=== PATIENT | male | born 1985 | race Two or more races ===

== ENCOUNTER 2020-12-19 01:41 | Inpatient (IN) | payer SELFPAY ==
[~2020-12-19] VITALS: Ht 170.2 cm; Wt 86.2 kg
[2020-12-19 02:38] LABS: Basophils # (auto) 0 10 ^3/uL (0-0.2); Basophils % (auto) 0.3 % (0.0-2.0); Eosinophils # (auto) 0.1 10 ^3/uL (0-0.8); Eosinophils % (auto) 1.4 % (0.0-7.0); Hematocrit 48.2 % (41.0-53.0); Hemoglobin 17.5 g/dL (13.5-17.5); Lymphocytes # (auto) 3.4 10 ^3/uL (0.4-5.4); Lymphocytes % (auto) 45.4 % (10.0-50.0); Mean Corpuscular Hemoglobin 31.8 pg (28.0-32.0); Mean Corpuscular Hgb Conc. 36.4 g/dL (32.0-36.0); Mean Corpuscular Volume 87.3 fL (80.0-100.0); Monocytes # (auto) 0.6 10 ^3/uL (0-1.3); Neutrophils # (auto) 3.3 10 ^3/uL (1.6-8.6); Neutrophils % (auto) 44.9 % (37.0-80.0); Nucleated Red Blood Cells % 0.1 %; Platelet Count (auto) 297 10^3/uL (140-450); Red Blood Cells 5.52 10^6/uL (4.5-5.90); Red Cell Distribution Width 13.5 % (11.8-14.3); White Blood Cell 7.4 10^3/uL (4.4-10.8)
[2020-12-19 02:50] LABS: INR 1.03 (0.9-1.15); Partial Thromboplastin Time 27.3 sec (23.0-31.2)
[2020-12-19 02:53] LABS: Albumin 4.3 g/dL (3.4-5.0); BUN/Creatinine Ratio 12.2; Potassium 3.1 mmol/L (3.5-5.1)
[2020-12-19 02:58] LABS: Bilirubin, Total 0.6 mg/dL (0.2-1.0); Total Protein 7.4 g/dL (6.4-8.2)
[2020-12-19 03:30] LABS: Urine Bacteria NONE SEEN /hpf (None Seen); Urine Blood Negative /uL (Negative); Urine Specific Gravity 1.016 (1.001-1.035); Urine WBC <1 /hpf (0 - 3)
[2020-12-19] MEDS ORDERED: POTASSIUM EFFERVESENT TAB 25 MEQ PO ONE (03:30)
[2020-12-19] MEDS ORDERED: ENOXAPARIN SOD 100 MG/1 ML SYRINGE SC ONE (06:45)
[2020-12-19] MEDS ORDERED: ASPirin 325 MG TAB PO ONE (06:45)
[2020-12-19] MEDS ORDERED: ACETAMINOPHEN 325 MG TAB PO PRN (07:30)
[2020-12-19] MEDS ORDERED: ONDANSETRON HCL 4 MG/2 ML VIAL IV PRN (07:30)
[2020-12-19] MEDS ORDERED: MORPHINE SULFATE 4 MG/ML SYR/VIAL IV PRN (07:30)
[2020-12-19] MEDS ORDERED: HYDROcodone-ACET 5/325MG TAB PO PRN (07:30)
[2020-12-19] MEDS ORDERED: DOCUSATE SOD 100 MG CAP PO PRN (07:30)
[2020-12-19] MEDS ORDERED: MORPHINE SULF INJ 2 MG/ML SYRINGE 1ML IV PRN (07:30)
[2020-12-19] MEDS ORDERED: NITROGLYCERIN 0.4 MG SL TAB SL PRN (07:30)
[2020-12-19] MEDS ORDERED: hydrALAZINE HCL 20 MG/ML VL IV PRN (07:30)
[2020-12-19 07:49] LABS: Albumin 4.1 g/dL (3.4-5.0); Calcium 8.7 mg/dL (8.5-10.1); Potassium 4.4 mmol/L (3.5-5.1)
[2020-12-19 07:52] LABS: BUN/Creatinine Ratio 9.4; Bilirubin, Total 0.7 mg/dL (0.2-1.0); Total Protein 7.5 g/dL (6.4-8.2)
[2020-12-19 07:59] LABS: Basophils # (auto) 0 10 ^3/uL (0-0.2); Basophils % (auto) 0.6 % (0.0-2.0); Eosinophils # (auto) 0 10 ^3/uL (0-0.8); Eosinophils % (auto) 0.1 % (0.0-7.0); Hematocrit 47.1 % (41.0-53.0); Lymphocytes # (auto) 1.6 10 ^3/uL (0.4-5.4); Lymphocytes % (auto) 20.6 % (10.0-50.0); Mean Corpuscular Hemoglobin 31.4 pg (28.0-32.0); Mean Corpuscular Hgb Conc. 36.2 g/dL (32.0-36.0); Mean Corpuscular Volume 86.9 fL (80.0-100.0); Monocytes # (auto) 0.3 10 ^3/uL (0-1.3); Monocytes % (auto) 3.8 % (0.0-12.0); Neutrophils % (auto) 74.9 % (37.0-80.0); Nucleated Red Blood Cells % 0.1 %; Platelet Count (auto) 287 10^3/uL (140-450); Red Blood Cells 5.42 10^6/uL (4.5-5.90); Red Cell Distribution Width 13.2 % (11.8-14.3)
[2020-12-19 08:25] LABS: Cholesterol 228 mg/dL (< 200)
[2020-12-19 08:29] LABS: HDL Cholesterol 56 mg/dL (40-59); LDL Cholesterol 156 mg/dL (< 100); Triglycerides 126 mg/dL (< 150)
[2020-12-19] MEDS: ZINC SULFATE 220mg CAP or TAB PO SCH (10:21)
[2020-12-19] MEDS: MULTIPLE VITAMIN TAB PO SCH (10:21)
[2020-12-19] MEDS: ASCORBIC ACID 500 MG TAB PO SCH ×2 (10:21→21:21)
[2020-12-19] MEDS: FAMOTIDINE (10MG/ML) 2ML VL IV SCH ×2 (10:21→21:21)
[2020-12-19] MEDS: ASPirin 81 mg TAB PO SCH (10:21)
[2020-12-19] MEDS: ENOXAPARIN SOD 40 MG/0.4 ML SYRINGE SC SCH (10:22)
[2020-12-19] MEDS: ATORVASTATIN 20 MG TAB PO SCH (21:21)
[2020-12-19 22:00] VITALS: BP 149/6
[2020-12-19 22:35] VITALS: BP 149/86
[2020-12-20 04:51] VITALS: BP 154/96
[2020-12-20 07:25] LABS: Basophils # (auto) 0 10 ^3/uL (0-0.2); Basophils % (auto) 0.2 % (0.0-2.0); Eosinophils # (auto) 0 10 ^3/uL (0-0.8); Eosinophils % (auto) 0.9 % (0.0-7.0); Hematocrit 47.9 % (41.0-53.0); Hemoglobin 16.9 g/dL (13.5-17.5); Lymphocytes % (auto) 35.5 % (10.0-50.0); Mean Corpuscular Hgb Conc. 35.3 g/dL (32.0-36.0); Mean Corpuscular Volume 87.7 fL (80.0-100.0); Monocytes # (auto) 0.4 10 ^3/uL (0-1.3); Neutrophils # (auto) 3.1 10 ^3/uL (1.6-8.6); Neutrophils % (auto) 55.4 % (37.0-80.0); Nucleated Red Blood Cells % 0.2 %; Platelet Count (auto) 296 10^3/uL (140-450); Red Blood Cells 5.47 10^6/uL (4.5-5.90); White Blood Cell 5.5 10^3/uL (4.4-10.8)
[2020-12-20 07:33] LABS: Albumin 4.2 g/dL (3.4-5.0); Potassium 3.7 mmol/L (3.5-5.1)
[2020-12-20 07:35] LABS: BUN/Creatinine Ratio 10.7
[2020-12-20 07:51] LABS: Bilirubin, Total 0.9 mg/dL (0.2-1.0); Total Protein 7.2 g/dL (6.4-8.2)
[2020-12-20 08:00] VITALS: BP 128/93
[2020-12-20] MEDS: FAMOTIDINE (10MG/ML) 2ML VL IV SCH ×2 (10:43→21:26)
[2020-12-20] MEDS: ASPirin 81 mg TAB PO SCH (10:43)
[2020-12-20] MEDS: MULTIPLE VITAMIN TAB PO SCH (10:44)
[2020-12-20] MEDS: ENOXAPARIN SOD 40 MG/0.4 ML SYRINGE SC SCH (10:44)
[2020-12-20] MEDS: ZINC SULFATE 220mg CAP or TAB PO SCH (10:44)
[2020-12-20] MEDS: ASCORBIC ACID 500 MG TAB PO SCH ×2 (10:44→21:26)
[2020-12-20] MEDS ORDERED: LORazepam 0.5 MG TAB PO PRN (14:30)
[2020-12-20 16:00] VITALS: BP 144/99
[2020-12-20] MEDS: ATORVASTATIN 20 MG TAB PO SCH (21:26)
[2020-12-20 22:00] VITALS: BP 150/96
[2020-12-21 05:00] VITALS: BP 134/76
[2020-12-21 08:00] VITALS: BP 144/99
[2020-12-21 08:51] LABS: Basophils # (auto) 0 10 ^3/uL (0-0.2); Basophils % (auto) 0.3 % (0.0-2.0); Eosinophils # (auto) 0 10 ^3/uL (0-0.8); Eosinophils % (auto) 0.8 % (0.0-7.0); Hematocrit 46.3 % (41.0-53.0); Hemoglobin 16.9 g/dL (13.5-17.5); Lymphocytes # (auto) 1.7 10 ^3/uL (0.4-5.4); Lymphocytes % (auto) 31.2 % (10.0-50.0); Mean Corpuscular Hemoglobin 31.8 pg (28.0-32.0); Mean Corpuscular Hgb Conc. 36.4 g/dL (32.0-36.0); Mean Corpuscular Volume 87.2 fL (80.0-100.0); Monocytes # (auto) 0.4 10 ^3/uL (0-1.3); Monocytes % (auto) 7.9 % (0.0-12.0); Neutrophils # (auto) 3.3 10 ^3/uL (1.6-8.6); Neutrophils % (auto) 59.8 % (37.0-80.0); Nucleated Red Blood Cells % 0.3 %; Platelet Count (auto) 268 10^3/uL (140-450); Red Blood Cells 5.31 10^6/uL (4.5-5.90); White Blood Cell 5.6 10^3/uL (4.4-10.8)
[2020-12-21 09:17] LABS: Anion Gap 6 (5-15); Blood Urea Nitrogen 12 mg/dL (7-18); Calcium 9.1 mg/dL (8.5-10.1); Carbon Dioxide 28 mmol/L (21-32); Chloride 104 mmol/L (98-107); Glucose 81 mg/dL (74-106); Potassium 3.9 mmol/L (3.5-5.1); Sodium 138 mmol/L (136-145)
[2020-12-21 09:19] LABS: GFR African American 122 mL/min; GFR Non-African American 101 mL/min
[2020-12-21] MEDS: ENOXAPARIN SOD 40 MG/0.4 ML SYRINGE SC SCH (10:00)
[2020-12-21] MEDS: ZINC SULFATE 220mg CAP or TAB PO SCH (10:09)
[2020-12-21] MEDS: ASPirin 81 mg TAB PO SCH (10:09)
[2020-12-21] MEDS: FAMOTIDINE (10MG/ML) 2ML VL IV SCH (10:09)
[2020-12-21] MEDS: MULTIPLE VITAMIN TAB PO SCH (10:09)
[2020-12-21] MEDS: ASCORBIC ACID 500 MG TAB PO SCH (10:10)
== END 2020-12-21 15:00 | disposition home or self-care (01) | DRG 282 ==
LOC: ER 01:49 → TELE 01:50 → TELE-WESTW 20:50
PROVIDERS: ADMIT Nurse Practitioner Family; ATTEND Internal Medicine
DX: I21.4 Non-ST elevation (NSTEMI) myocardial infarction (principal); E87.6 Hypokalemia; E78.5 Hyperlipidemia, unspecified; F41.9 Anxiety disorder, unspecified; I10 Essential (primary) hypertension; Z20.822 Contact with and (suspected) exposure to COVID-19; Z79.899 Other long term (current) drug therapy; Z79.82 Long term (current) use of aspirin; Z82.49 Family history of ischemic heart disease and other diseases of the circulatory system
CPT/HCPCS: 36415; 71045; 80048; 80053; 80061; 81001; 83735; 83880; 84443; 84484; 85025; 85610; 85730; 87426; 93005; 93306; 96372; 96374; G0378; J3490

== ENCOUNTER 2020-12-25 18:24 | Emergency (ER) | payer BC, MEDICAID ==
[~2020-12-25] VITALS: Ht 170.2 cm; Wt 86.2 kg
[2020-12-25 19:39] LABS: Calcium 8.5 mg/dL (8.5-10.1); Magnesium 2.4 mg/dL (1.6-2.6); Potassium 3.5 mmol/L (3.5-5.1)
[2020-12-25 19:42] LABS: Basophils # (auto) 0 10 ^3/uL (0-0.2); Basophils % (auto) 0.1 % (0.0-2.0); Eosinophils # (auto) 0.1 10 ^3/uL (0-0.8); Eosinophils % (auto) 0.8 % (0.0-7.0); Hematocrit 46.5 % (41.0-53.0); Hemoglobin 16.8 g/dL (13.5-17.5); Lymphocytes # (auto) 2.8 10 ^3/uL (0.4-5.4); Lymphocytes % (auto) 35.9 % (10.0-50.0); Mean Corpuscular Hemoglobin 31.3 pg (28.0-32.0); Mean Corpuscular Hgb Conc. 36.1 g/dL (32.0-36.0); Mean Corpuscular Volume 86.6 fL (80.0-100.0); Monocytes # (auto) 0.4 10 ^3/uL (0-1.3); Monocytes % (auto) 5.8 % (0.0-12.0); Neutrophils # (auto) 4.4 10 ^3/uL (1.6-8.6); Neutrophils % (auto) 57.4 % (37.0-80.0); Nucleated Red Blood Cells % 0.1 %; Platelet Count (auto) 325 10^3/uL (140-450); Red Blood Cells 5.37 10^6/uL (4.5-5.90); White Blood Cell 7.7 10^3/uL (4.4-10.8)
[2020-12-25 19:46] LABS: BUN/Creatinine Ratio 9.4; Bilirubin, Total 0.7 mg/dL (0.2-1.0); Total Protein 7.5 g/dL (6.4-8.2)
[2020-12-26 00:42] VITALS: BP 150/82
== END 2020-12-26 00:48 | disposition home or self-care (01) ==
LOC: ER 18:24
DX: J18.9 Pneumonia, unspecified organism (principal); R07.89 Other chest pain; I10 Essential (primary) hypertension
CPT/HCPCS: 36415; 71045; 80053; 83735; 83880; 84484; 85025; 93005